=== PATIENT | male | born 1975 | race Caucasian/White ===

== ENCOUNTER 2023-07-14 14:26 | Inpatient (IN) | payer MEDICAID ==
[~2023-07-14] VITALS: Ht 190.5 cm; Wt 107.8 kg
[2023-07-14 15:26] LABS: BASOPHILS % (AUTO) 0.7 % (0-1); EOSINOPHILS # (AUTO) 0.3 X10'3 (0-0.9); EOSINOPHILS % (AUTO) 4.6 % (0-6); HEMATOCRIT 47.8 % (42.0-52.0); HEMOGLOBIN 16.3 g/dl (14.0-17.9); LYMPHOCYTES # (AUTO) 1.4 X10'3 (1.1-4.8); MEAN CORPUSCULAR HEMOGLOBIN 28.1 PG (27.0-31.0); MEAN CORPUSCULAR VOLUME 82.4 FL (78-98); MONOCYTES # (AUTO) 0.8 X10'3 (0-0.9); MONOCYTES % (AUTO) 13.4 % (2-12); NEUTROPHILS # (AUTO) 3.3 X10'3 (1.8-7.7); NEUTROPHILS % (AUTO) 56.3 % (42-75); PLATELET COUNT 213 X10'3 (140-440); RED CELL DISTRIBUTION WIDTH 15.1 % (11.5-14.5); WHITE BLOOD COUNT 5.8 X10'3 (4.5-11.0)
[2023-07-14 15:31] LABS: BILIRUBIN,URINE SMALL (Neg); CLARITY,URINE SLIGHTLY CLOUDY (Clear); COLOR,URINE YELLOW (Yellow); GLUCOSE, URINE NEGATIVE (Neg); KETONES,URINE TRACE mg/dl (Neg); LEUKOCYTE ESTERASE ,URINE NEGATIVE (Neg); NITRITES, URINE NEGATIVE (Neg); OCCULT BLOOD,URINE SMALL (Neg); PH,URINE 6.5 (4.8-8.0); PROTEIN,URINE 30 mg/dl (Neg)
[2023-07-14 15:36] LABS: UA COLLECTION TYPE CLN CATCH MIDSTREAM
[2023-07-14 15:37] LABS: BACTERIA,URINE NONE SEEN /HPF (Neg); MUCUS STRANDS FEW /LPF (Neg); SQUAMOUS EPITHELIAL CELL,UR FEW /LPF (FEW); WBC,URINE 0-4 /HPF (0-4)
[2023-07-14 15:45] LABS: ALANINE AMINOTRANSFERASE 101 U/L (12-78); ALBUMIN/GLOBULIN RATIO 0.8 (1.1-1.5); ALKALINE PHOSPHATASE 76 IU/L (46-116); ANION GAP 9 (8-16); ASPARTATE AMINO TRANSFERASE 71 U/L (10-37); BILIRUBIN,TOTAL 1.4 MG/DL (0.1-1.0); BLOOD UREA NITROGEN 16 MG/DL (7-18); BUN/CREATININE RATIO 14.4 (10.0-20.0); CALCIUM 8.7 MG/DL (8.5-10.1); CHLORIDE 98 MMOL/L (99-107); CREATININE 1.11 MG/DL (0.60-1.10); GLUCOSE 123 MG/DL (70-104); LIPASE 24 U/L (16-77); POTASSIUM 3.3 MMOL/L (3.5-5.1); SODIUM 136 MMOL/L (135-145); TOTAL CARBON DIOXIDE 29.5 MMOL/L (24-32); TOTAL PROTEIN 9.3 G/DL (6.4-8.2); eCRCL 98 ML/MIN; eGFR 71 ML/MIN
[2023-07-14 16:50] LABS: APTT 26 SECONDS (22-32); PROTHROMBIN TIME 10.9 SECONDS (9.0-12.0)
[2023-07-14 17:28] LABS: HCG SERUM QL NEGATIVE
[2023-07-14] MEDS ORDERED: ondansetron/PF 4mg/2ml inj IV PRN (18:15)
[2023-07-14] MEDS ORDERED: magnesium 2GM in 50ml NS 50 ML IV PRN (18:15)
[2023-07-14] MEDS ORDERED: magnesium Cl slow-release 64mg tablet PO PRN (18:15)
[2023-07-14] MEDS ORDERED: magnesium 4gm in 100ml NS 100 ML IV PRN (18:15)
[2023-07-14] MEDS ORDERED: potassium Cl 20 mEq SR tablet PO PRN (18:15)
[2023-07-14] MEDS: normal saline 1000ML IV soln IVB ONE (18:19)
[2023-07-14] MEDS: dicyclomine 10 MG capsule PO ONE (18:33)
[2023-07-14] MEDS: acetaminophen 1,000mg/100ml IV 100 ML IV STA (18:33)
[2023-07-14] MEDS: ondansetron/PF 4mg/2ml inj IV ONE (18:33)
[2023-07-14] MEDS: normal saline 1000ml 1,000 ML IV SCH (19:00)
[2023-07-14] MEDS: ketorolac trometh. 30mg/ml inj. IM ONE (19:01)
[2023-07-14] MEDS: K and/or MAG REPLACEMENT MC SCH (20:00)
[2023-07-14] MEDS: potassium Cl 40MEQ/1/2NS 520ml 520 ML IV PRN (20:07)
[2023-07-14 22:50] VITALS: BP 136/83; PULSE 68; RESP 16; TEMP 97.8; O2SAT 96
[2023-07-15 03:15] VITALS: RESP 16; O2SAT 98
[2023-07-15 06:00] VITALS: BP 133/79; PULSE 64; RESP 19; TEMP 96.8; O2SAT 95
[2023-07-15 07:13] LABS: BASOPHILS % (AUTO) 0.4 % (0-1); EOSINOPHILS # (AUTO) 0.3 X10'3 (0-0.9); EOSINOPHILS % (AUTO) 8.5 % (0-6); HEMATOCRIT 41.3 % (42.0-52.0); LYMPHOCYTES # (AUTO) 1.1 X10'3 (1.1-4.8); LYMPHOCYTES % (AUTO) 27.4 % (21-51); MEAN CORPUSCULAR HGB CONC 33.9 g/dL (33.0-36.5); MEAN CORPUSCULAR VOLUME 82.8 FL (78-98); MEAN PLATELET VOLUME 10.3 FL (7.4-10.4); MONOCYTES # (AUTO) 0.6 X10'3 (0-0.9); MONOCYTES % (AUTO) 14.1 % (2-12); NEUTROPHILS % (AUTO) 49.6 % (42-75); PLATELET COUNT 168 X10'3 (140-440); RED BLOOD COUNT 4.99 X10'6 (4.70-6.10); RED CELL DISTRIBUTION WIDTH 15.2 % (11.5-14.5)
[2023-07-15 07:14] LABS: ALBUMIN 3.3 G/DL (3.4-5.0); ANION GAP 11 (8-16); BLOOD UREA NITROGEN 19 MG/DL (7-18); BUN/CREATININE RATIO 21.3 (10.0-20.0); CALCIUM 7.9 MG/DL (8.5-10.1); CHLORIDE 104 MMOL/L (99-107); CREATININE 0.89 MG/DL (0.60-1.10); GLUCOSE 95 MG/DL (70-104); MAGNESIUM 2.1 MG/DL (1.5-2.4); POTASSIUM 3.2 MMOL/L (3.5-5.1); SODIUM 140 MMOL/L (135-145); TOTAL CARBON DIOXIDE 24.8 MMOL/L (24-32); eCRCL 123 ML/MIN; eGFR > 90 ML/MIN
[2023-07-15 08:00] VITALS: RESP 19; O2SAT 95
[2023-07-15] MEDS: potassium Cl 20 mEq SR tablet PO PRN (08:22)
[2023-07-15] MEDS: pantoprazole 40mg Tablet.DR PO ONE (12:12)
[2023-07-15 14:39] LABS: ALANINE AMINOTRANSFERASE 67 U/L (12-78); ALBUMIN 3.4 G/DL (3.4-5.0); ALBUMIN/GLOBULIN RATIO 0.9 (1.1-1.5); ALKALINE PHOSPHATASE 55 IU/L (46-116); ASPARTATE AMINO TRANSFERASE 24 U/L (10-37); BILIRUBIN,DIRECT 0.3 MG/DL (0-0.3); TOTAL PROTEIN 7.2 G/DL (6.4-8.2)
[2023-07-16] MEDS ORDERED: pantoprazole 40mg Tablet.DR PO SCH (07:30)
== END 2023-07-15 14:15 | disposition home or self-care (01) | DRG 247 ==
LOC: ER 14:27 → ED HOLD 18:17 → ORTHO 4S 22:13
PROVIDERS: ADMIT Internal Medicine; ATTEND Internal Medicine
DX: K56.7 Ileus, unspecified (principal); N17.0 Acute kidney failure with tubular necrosis; K52.9 Noninfective gastroenteritis and colitis, unspecified; E87.6 Hypokalemia; E86.0 Dehydration; R79.89 Other specified abnormal findings of blood chemistry
CPT/HCPCS: 36415; 74176; 80048; 80053; 80076; 81001; 83605; 83690; 83735; 84703; 85025; 85610; 85730; 86709; 86803; 87040; 87081; 87340; 87522; 99285; G0378; J0131; J1885; J2405; J3480; J7030